=== PATIENT | female | born 1940 | race Caucasian/White ===

== ENCOUNTER 2021-08-25 14:22 | Inpatient (IN) | payer MEDICAID, MEDICARE ==
[~2021-08-25] VITALS: Ht 162.6 cm; Wt 72.6 kg
--- NOTE | 2021-08-25 14:29 | NUR ---
placed pt. on monitoring and evaluation advisor hr of 96, rr 18 sbp 148/80. pt. complaint with nursing interventions.
[2021-08-25] MEDS ORDERED: IV NORMAL SALINE 500 ML BAG IV ONE (15:00)
--- NOTE | 2021-08-25 15:21 | NUR ---
at bedside to examine pt.
[2021-08-25 15:27] LABS: HEMATOCRIT 42.6 % (31.2-41.9); MEAN CORPUSCULAR HEMOGLOBIN 29.5 uug (24.7-32.8); MEAN CORPUSCULAR VOLUME 88.7 fL (75.5-95.3); PLATELET COUNT (AUTO) 326 K/uL (179-408)
[2021-08-25 15:48] LABS: ALANINE AMINOTRANSFERASE 31 U/L (14-59); ALKALINE PHOSPHATASE 120 U/L (50-136); ASPARTATE AMINOTRANSFERASE 19 U/L (15-37); BILIRUBIN,DIRECT 0.1 mg/dL (0.0-0.2); BILIRUBIN,TOTAL 0.4 mg/dL (0.2-1.0); CARBON DIOXIDE 27 mmol/L (21-32); CHLORIDE 105 mmol/L (98-107); GLUCOSE 113 mg/dL (74-106); POTASSIUM 3.8 mmol/L (3.5-5.1); TOTAL PROTEIN, SERUM 7.2 g/dL (6.4-8.2); UREA NITROGEN, BLOOD 14 mg/dL (7-18)
[2021-08-25] MEDS ORDERED: CYAN-51 PO (15:55)
[2021-08-25] MEDS ORDERED: BUDE10.22 INH (15:55)
[2021-08-25] MEDS ORDERED: ACET-73 PO (15:55)
[2021-08-25] MEDS ORDERED: LORA10TA7 PO (15:55)
[2021-08-25] MEDS ORDERED: ESCI5TAB PO (15:55)
[2021-08-25] MEDS ORDERED: OMEP20TA5 PO (15:55)
[2021-08-25] MEDS ORDERED: DOCU100C36 PO (15:55)
[2021-08-25] MEDS ORDERED: TRIA15CR2 TP (15:55)
[2021-08-25] MEDS ORDERED: TRAZ-182 PO (15:55)
[2021-08-25] MEDS ORDERED: FURO40TA5 PO (15:55)
[2021-08-25] MEDS ORDERED: [UNRECOGNIZED DRUG - CODE] PO (15:55)
[2021-08-25] MEDS ORDERED: CALC215T4 PO (15:55)
[2021-08-25] MEDS ORDERED: DONE5TAB34 PO (15:55)
[2021-08-25] MEDS ORDERED: IPRA4AER IH (15:55)
[2021-08-25] MEDS ORDERED: ERGO500040 PO (15:55)
[2021-08-25] MEDS ORDERED: OLAN5TAB70 PO (15:55)
[2021-08-25] MEDS ORDERED: ASPI-869 PO (15:55)
[2021-08-25] MEDS ORDERED: QUET25TA PO (15:55)
[2021-08-25] MEDS ORDERED: GABA-532 PO (15:55)
[2021-08-25] MEDS ORDERED: PERM60CR4 TP (15:55)
[2021-08-25] MEDS ORDERED: DICLOFENAC 1% GEL TP (15:55)
[2021-08-25] MEDS ORDERED: POTA10CA43 PO (15:55)
[2021-08-25] MEDS ORDERED: PIPERACILLIN SODIUM/TAZOBACTAM 3.375 G in IV DEXTROSE 5% 50 ML IV ONE (16:15)
[2021-08-25] MEDS ORDERED: PIPERACILLIN/TAZOBACTAM/D5W 50 ML IV ONE (16:18)
[2021-08-25] MEDS ORDERED: LORAZEPAM 2 MG/1 ML VIAL IV ONE (16:45)
[2021-08-25] MEDS ORDERED: LORAZEPAM 2 MG/1 ML VIAL ONE (16:48)
--- NOTE | 2021-08-25 16:58 | NUR ---
Call 3rd floor to give report at this time I was informed pt. will be admitted past 1700. and nurse will call E.R. when ready.
--- NOTE | 2021-08-25 17:17 | NUR ---
PCR specimen collected and delivered to lab.
--- NOTE | 2021-08-25 18:10 | NUR ---
Telephone report given to Dat Lundberg all systems cover. Awaiting call back as stated "r/o covid bed needs to be assigned".
--- NOTE | 2021-08-25 18:11 | NUR ---
pt slightly restless HR of 111, sbp 111/96. 96 on RA.
--- NOTE | 2021-08-25 18:14 | NUR ---
At this time I was informed by receiving nurse that admission got delayed due to reassignment in bed. And they'll call us when bed will be available. New room 324 awaiting to be cleaned.
--- NOTE | 2021-08-25 19:08 | NUR ---
patient taken up to room 322 AAOx4. vital of 138/93, hr 102 saturatio of 93% ON ra. PT. situated in bed and placed on telemetry monitoring.
--- NOTE | 2021-08-25 19:30 | NUR ---
Patient admitted to telemetry, NSR. AAO x2. Noted with some confusion/ forgetfulness. Able to remember where she came from not why. She sates she does not want to return to [facility] because thats why she got scabies. Noted with redness to back and chest from itching and scratching. Right AC 20 gauge IV, patent and intact. Skin is intact. No SOB, on RA. Patient is NPO. Safety measures initiated, call light within reach.
[2021-08-25] MEDS ORDERED: QUETIAPINE FUMARATE 25 MG TABLET PO PRN ×2 (20:00→20:15)
[2021-08-25] MEDS ORDERED: ACETAMINOPHEN ES 500 MG TABLET PO PRN (20:00)
[2021-08-25] MEDS ORDERED: MORPHINE SULFATE 2 MG/1 ML DISP.SYRIN IV PRN (20:00)
[2021-08-25] MEDS ORDERED: ACETAMINOPHEN ES 500 MG TABLET- SA PATIENTS-PAIN ONLY PO PRN (20:00)
[2021-08-25] MEDS ORDERED: PERMETHRIN 5% CREAM 60 GM TUBE TP ONE (21:00)
[2021-08-25] MEDS ORDERED: TRAZODONE 50 MG TABLET PO SCH (21:00)
--- NOTE | 2021-08-25 21:00 | NUR ---
Dr. Howell made aware report of patient having scabies in her facility and noted with itching and scratching to chest and back. New orders for PRN Benadryl and Permethrin cream noted and carried out. Joselin RODRIGUES d/t allergy.
[2021-08-25] MEDS: DONEPEZIL 5 MG TABLET PO SCH (21:17)
[2021-08-25] MEDS: diphenhydrAMINE 50 MG/1 ML VIAL IV PRN (21:17)
[2021-08-25] MEDS: PIPERACILLIN SODIUM/TAZOBACTAM 3.375 G in IV DEXTROSE 5% 100 ML IV SCH (21:18)
[2021-08-25] MEDS ORDERED: PIPERACILLIN SODIUM/TAZOBACTAM 3.375 G in IV DEXTROSE 5% 50 ML IV SCH (22:00)
[2021-08-26 04:50] VITALS: BP 142/66
[2021-08-26] MEDS: PIPERACILLIN SODIUM/TAZOBACTAM 3.375 G in IV DEXTROSE 5% 100 ML IV SCH ×3 (05:22→21:58)
[2021-08-26] MEDS: diphenhydrAMINE 50 MG/1 ML VIAL IV PRN ×3 (05:22→17:36)
--- NOTE | 2021-08-26 06:03 | NUR ---
Patient still continued with itching to back and chest. Benadryl 50mg IV provided as ordered with help. Remains NSR at 83BPM. on RA, no SOB, moist non productive cough still noted. Safety measures in place. Is continent and incontinent of bladder. Call light within reach.
--- NOTE | 2021-08-26 06:08 | NUR ---
Cameras on unit not functioning, unable to take picture of back and chest. Will endorse to day shift.
[2021-08-26] MEDS: PANTOPRAZOLE SODIUM 40 MG TABLET.DR PO SCH (06:24)
[2021-08-26 07:13] LABS: HEMATOCRIT 40.3 % (31.2-41.9); MEAN CORPUSCULAR HEMOGLOBIN 30.3 uug (24.7-32.8); MEAN CORPUSCULAR VOLUME 87.9 fL (75.5-95.3); PLATELET COUNT (AUTO) 296 K/uL (179-408)
[2021-08-26 07:50] LABS: BILIRUBIN,TOTAL 0.4 mg/dL (0.2-1.0); CREATININE 1.2 mg/dL (0.6-1.3); MAGNESIUM 2.3 mg/dL (1.8-2.4); PHOSPHOROUS 3.2 mg/dL (2.5-4.9); POTASSIUM 3.8 mmol/L (3.5-5.1); TOTAL PROTEIN, SERUM 7.4 g/dL (6.4-8.2)
[2021-08-26] MEDS ORDERED: Medication Not On Formulary EA (Escitalopram Oxalate (Lexapro) 5 MG) PO SCH (09:00)
[2021-08-26] MEDS ORDERED: OLANZAPINE 5 MG TABLET PO SCH (09:00)
[2021-08-26] MEDS ORDERED: ESCITALOPRAM OXALATE 10 MG TABLET PO SCH (09:00)
[2021-08-26] MEDS: ASPIRIN EC 325 MG TABLET.DR PO SCH (09:28)
[2021-08-26] MEDS: DOCUSATE SODIUM 100 MG CAPSULE PO SCH ×2 (09:28→17:36)
[2021-08-26] MEDS: GABAPENTIN 100 MG CAPSULE PO SCH ×3 (09:28→17:36)
[2021-08-26] MEDS: CYANOCOBALAMIN 1,000 MCG TABLET PO SCH (09:29)
[2021-08-26] MEDS: LORATADINE 10 MG TABLET PO SCH (09:29)
[2021-08-26 10:57] VITALS: BP 134/63
--- NOTE | 2021-08-26 16:02 | NUR ---
Clinical SW Note and Discharge Update: SW was able to conduct an assessment with the pt. Pt is alert and oriented x1(name). Pt did not recall the reason for her hospitalization. Pt stated, I wasn't feeling well and then I was brought here. Pt stated, "I don't know." when SW asked pt if she knows where she is. Pt stated she does not want to return to [facility] where pt has resided since 11/30/20 due to not liking the care she received there and she will not return. Per Jamia in admissions at [place], pt is accepted to [facility] ([phone]) upon discharge. Pt stated her ex- past away and her daughter overdosed a long time ago. Pt stated she only has one son who pt did not recall the last communication. Pt stated she also has a mobile home prior to living at [facility]. Pt stated she would like to live with her son if possible. SW was not able to attain contact information of the son or any other family contact information. Jamia stated pt has a conservator from the public guardian named, Cat Sullivan. Pt denied substance use. Pt denied suicidal and homicidal ideations.
[2021-08-26 16:31] VITALS: BP 137/68
--- NOTE | 2021-08-26 19:00 | NUR ---
Patient is awake, alert, denies pain at this time. No signs of acute distress noted. IV site intact and patent. No infiltration, bleeding or erythema noted. Call light within reach. Bed at lowest position, brakes on, siderails x 2. Will continue to monitor.
--- NOTE | 2021-08-26 19:45 | NUR ---
Patient complained of itchiness at her back. Scratched her back. She wanted to get another medication for her back. Called [facility] exchange and spoke with Betito Beck NP. Per Kiran to give hydroxyzine 25mg PO Q8 HS PRN. Noted and carried out.
--- NOTE | 2021-08-26 20:00 | NUR ---
Wound photos taken and placed to chart.
[2021-08-26 20:24] VITALS: BP 143/69
[2021-08-26] MEDS: hydrOXYzine HCL 25 MG TABLET PO PRN (20:32)
[2021-08-26] MEDS: OLANZAPINE 5 MG TABLET PO SCH (20:32)
[2021-08-26] MEDS: ATORVASTATIN 10 MG TABLET PO SCH (20:32)
[2021-08-26] MEDS: DONEPEZIL 5 MG TABLET PO SCH (20:32)
--- NOTE | 2021-08-27 02:00 | NUR ---
Resting comfortably. No significant change of condition noted. Will continue to monitor.
[2021-08-27 04:00] VITALS: BP 119/54
[2021-08-27] MEDS: PIPERACILLIN SODIUM/TAZOBACTAM 3.375 G in IV DEXTROSE 5% 100 ML IV SCH ×3 (05:07→21:58)
[2021-08-27] MEDS: PANTOPRAZOLE SODIUM 40 MG TABLET.DR PO SCH (06:14)
[2021-08-27 07:04] LABS: HEMATOCRIT 41.1 % (31.2-41.9); MEAN CORPUSCULAR HEMOGLOBIN 30.4 uug (24.7-32.8); MEAN CORPUSCULAR VOLUME 88.4 fL (75.5-95.3); PLATELET COUNT (AUTO) 291 K/uL (179-408)
[2021-08-27 07:16] LABS: CREATININE 1.1 mg/dL (0.6-1.3); MAGNESIUM 2.3 mg/dL (1.8-2.4); PHOSPHOROUS 3.7 mg/dL (2.5-4.9); POTASSIUM 3.9 mmol/L (3.5-5.1)
--- NOTE | 2021-08-27 08:00 | NUR ---
AWAKE ALERT AND VERBALLY RESPONSIVE BUT NOTE WITH ON AND OFF CONFUSION TO TIME AND PLACE, CLOSELYT MONITORED
[2021-08-27] MEDS: CYANOCOBALAMIN 1,000 MCG TABLET PO SCH (09:19)
[2021-08-27] MEDS: ASPIRIN EC 325 MG TABLET.DR PO SCH (09:20)
[2021-08-27] MEDS: GABAPENTIN 100 MG CAPSULE PO SCH ×3 (09:20→17:08)
[2021-08-27] MEDS: OLANZAPINE 5 MG TABLET PO SCH ×2 (09:21→20:02)
[2021-08-27] MEDS: DOCUSATE SODIUM 100 MG CAPSULE PO SCH ×2 (09:21→17:08)
[2021-08-27] MEDS: LORATADINE 10 MG TABLET PO SCH (09:21)
[2021-08-27 12:00] VITALS: BP 121/62
--- NOTE | 2021-08-27 12:00 | NUR ---
NOTED PCR RESULTS TAKEN ON 08/25/21 NEGATIVE. PATIENT NOTED ON AND OFF PRODUCTIVE COUGH BUT UNABLE TO COUGH OUT. CONTINUE IV ANTIBIOTIC ORDERED
--- NOTE | 2021-08-27 13:00 | NUR ---
PATIENT PULLED IV X2, REORIENTATION DONE
[2021-08-27 16:50] VITALS: BP 138/66
--- NOTE | 2021-08-27 17:41 | NUR ---
C/O CHILLY SENSATION TEMP CHECK 97 AXILLARY. WARM BLANKET OFFERED. NO ACTIVE ITCHING, NO SEVERE RASHES NOTED
[2021-08-27] MEDS: ATORVASTATIN 10 MG TABLET PO SCH (20:02)
[2021-08-27] MEDS: DONEPEZIL 5 MG TABLET PO SCH (20:02)
[2021-08-28 04:26] VITALS: BP 104/43
--- NOTE | 2021-08-28 06:03 | NUR ---
Slept throughout the night. No distress noted. Denies pain or SOB. IV site intact. Safety and comfort maintained, will endorse to day shift.
[2021-08-28] MEDS: PANTOPRAZOLE SODIUM 40 MG TABLET.DR PO SCH (06:21)
[2021-08-28] MEDS: PIPERACILLIN SODIUM/TAZOBACTAM 3.375 G in IV DEXTROSE 5% 100 ML IV SCH ×3 (06:21→21:15)
[2021-08-28] MEDS: diphenhydrAMINE 50 MG/1 ML VIAL IV PRN ×3 (06:43→21:39)
--- NOTE | 2021-08-28 07:51 | NUR ---
received patient in bed awake alert with periods of confusion and forgetfulness, reorientation done. denies pain or sob except for severe itching on the back. noted thick amount of skin rashes. will give PRN meds for itching
[2021-08-28] MEDS: hydrOXYzine HCL 25 MG TABLET PO PRN ×2 (08:11→20:55)
[2021-08-28] MEDS: OLANZAPINE 5 MG TABLET PO SCH ×2 (08:11→20:55)
[2021-08-28] MEDS: ASPIRIN EC 325 MG TABLET.DR PO SCH (08:11)
[2021-08-28] MEDS: CYANOCOBALAMIN 1,000 MCG TABLET PO SCH (08:11)
[2021-08-28] MEDS: GABAPENTIN 100 MG CAPSULE PO SCH ×3 (08:11→16:35)
[2021-08-28] MEDS: LORATADINE 10 MG TABLET PO SCH (08:11)
[2021-08-28] MEDS: DOCUSATE SODIUM 100 MG CAPSULE PO SCH ×2 (08:11→16:36)
[2021-08-28 11:38] VITALS: BP 110/49
--- NOTE | 2021-08-28 12:00 | NUR ---
NO ACUTE CHANGE FROM MORNING ASSESSMENT STILL WITH ON AND OF SKIN ITCHINESS. CONTINUE WITH PRN MEDS WITH GOOD RELIEF
--- NOTE | 2021-08-28 15:13 | NUR ---
CONTINUE WITH IV ANTIBIOTIC, NO SS OF PAIN OR DISTRESS SATURATING 97% ON RA. AFEBRILE
[2021-08-28 16:12] VITALS: BP 109/62
[2021-08-28] MEDS ORDERED: PERMETHRIN 5% CREAM 60 GM TUBE TP ONE (18:00)
[2021-08-28 20:24] VITALS: BP 102/40
--- NOTE | 2021-08-28 20:45 | NUR ---
Received report from Gilma, patient awake, alert x4, no shortness of breath, no complaint of pain. Complaint of consistent generalized itchiness, redness noted on both lower extremities, back and front trunk area. Repositioned for comfort.
[2021-08-28] MEDS: ATORVASTATIN 10 MG TABLET PO SCH (20:55)
[2021-08-28] MEDS: DONEPEZIL 5 MG TABLET PO SCH (20:55)
--- NOTE | 2021-08-28 21:39 | NUR ---
patient still complaining of itchiness, benadryl 25mg IV given. Relieved for an hour as stated by patient. Addendum: 08/29/21 at 0224 by TYLER ERICKSON RN RN Benadryl 50mg IV was given instead of 25mg.
[2021-08-29] MEDS: diphenhydrAMINE 50 MG/1 ML VIAL IV PRN ×2 (02:34→08:52)
--- NOTE | 2021-08-29 02:36 | NUR ---
Patient slept for 3 hours after administering Benadryl 50mg IV. Awake at this time, complaint again of severe itchiness on her back, Benadryl 50mg IV given. Assisted to void in the bedpan. Repositioned for comfort.
[2021-08-29 04:24] VITALS: BP 114/60
[2021-08-29] MEDS: hydrOXYzine HCL 25 MG TABLET PO PRN (04:38)
--- NOTE | 2021-08-29 05:26 | NUR ---
Patient still with itchiness, warm towel applied to patient`s back for comfort. No shortness of breath noted. Patient for skin scrape test for scabies, wound care consult done. For continuity of care.
[2021-08-29] MEDS: PIPERACILLIN SODIUM/TAZOBACTAM 3.375 G in IV DEXTROSE 5% 100 ML IV SCH ×2 (05:44→13:28)
[2021-08-29] MEDS: PANTOPRAZOLE SODIUM 40 MG TABLET.DR PO SCH (06:08)
--- NOTE | 2021-08-29 06:30 | NUR ---
Skin scrape for scabies test done and sent to lab.
[2021-08-29 06:56] LABS: HEMATOCRIT 38.2 % (31.2-41.9); MEAN CORPUSCULAR HEMOGLOBIN 30.4 uug (24.7-32.8); MEAN CORPUSCULAR VOLUME 88.4 fL (75.5-95.3); PLATELET COUNT (AUTO) 294 K/uL (179-408)
[2021-08-29 07:17] LABS: CREATININE 1.2 mg/dL (0.6-1.3); MAGNESIUM 2.2 mg/dL (1.8-2.4); POTASSIUM 3.9 mmol/L (3.5-5.1)
--- NOTE | 2021-08-29 07:50 | NUR ---
received awake and being changed by commercial glazier. no sob or distress noted. c/o of back itching and asked for benadryl. redness noted on trunk. iv intact atb currently infusing. safety precautions kept. call light in reach.
[2021-08-29] MEDS: DOCUSATE SODIUM 100 MG CAPSULE PO SCH ×2 (08:49→17:12)
[2021-08-29] MEDS: OLANZAPINE 5 MG TABLET PO SCH (08:51)
[2021-08-29] MEDS: LORATADINE 10 MG TABLET PO SCH (08:51)
[2021-08-29] MEDS: CYANOCOBALAMIN 1,000 MCG TABLET PO SCH (08:51)
[2021-08-29] MEDS: GABAPENTIN 100 MG CAPSULE PO SCH ×3 (08:51→17:12)
[2021-08-29] MEDS ORDERED: ASPIRIN EC 81 MG TABLET.DR PO SCH (09:00)
[2021-08-29] MEDS ORDERED: PERMETHRIN 5% CREAM 60 GM TUBE TP ONE (10:30)
--- NOTE | 2021-08-29 11:30 | NUR ---
pt removed her iv line, multiple attempts made unsuccessful. ordered for midline. trinidad sup aware.
[2021-08-29 11:58] VITALS: BP 143/58
--- NOTE | 2021-08-29 13:00 | NUR ---
able to insert iv line on right hand #22g tolerated. pt reinforced its importance and reminded to call when she needs help. she verbalized understanding.
[2021-08-29 16:24] VITALS: BP 131/60
[2021-08-29] MEDS ORDERED: OLAN5TAB70 PO (17:20)
[2021-08-29] MEDS ORDERED: ASPI-618 PO (17:20)
[2021-08-29] MEDS ORDERED: HYDR-500 PO (17:20)
[2021-08-29] MEDS ORDERED: ATOR10TA PO (17:20)
[2021-08-29] MEDS ORDERED: AMOX-430 PO (17:20)
[2021-08-29] MEDS ORDERED: ACID1TAB4 PO (17:20)
[2021-08-29] MEDS ORDERED: FURO-152 PO (17:20)
--- NOTE | 2021-08-29 18:23 | NUR ---
Pt for discharge back to [facility] in the [place] per maida's preference. Went over discharge instructions with the patient, verbalized understanding. No complaints at this time Addendum: 08/29/21 at 1825 by NORMAN MELGOZA RN Charge nurse called transportation for greens picker 730pm.
--- NOTE | 2021-08-29 19:21 | NUR ---
Called Claribel in the [facility] to give report but no answer, left voicemail. Endorsed to next shift.
--- NOTE | 2021-08-29 20:49 | NUR ---
Spoke to Kellie staff from [place] and gave report.
--- NOTE | 2021-08-29 21:09 | NUR ---
Patient picked up by [facility], gave report, and patient took all belonings, patient alert in fair condition.
== END 2021-08-29 21:10 | DRG 871 ==
LOC: ER 14:22 → TELE3 18:47 → MEDSURG3 08-26 08:50
PROVIDERS: ADMIT Internal Medicine; ATTEND Internal Medicine
PROC: 0HB6XZZ Excision of Back Skin, External Approach (ICD-10-PCS; principal; 2021-08-29)
DX: A41.9 Sepsis, unspecified organism (principal); J69.0 Pneumonitis due to inhalation of food and vomit; G92.8 Other toxic encephalopathy; D68.59 Other primary thrombophilia; F03.91 Unspecified dementia, unspecified severity, with behavioral disturbance; E78.5 Hyperlipidemia, unspecified; G89.29 Other chronic pain; M81.0 Age-related osteoporosis without current pathological fracture; Z20.822 Contact with and (suspected) exposure to COVID-19; Z87.891 Personal history of nicotine dependence; Z90.49 Acquired absence of other specified parts of digestive tract; R73.03 Prediabetes; B86 Scabies; I25.10 Atherosclerotic heart disease of native coronary artery without angina pectoris; M19.90 Unspecified osteoarthritis, unspecified site; Z74.09 Other reduced mobility; R53.1 Weakness; F39 Unspecified mood [affective] disorder; I50.9 Heart failure, unspecified
CPT/HCPCS: 36415; 70450; 71045; 83605; 83735; 84100; 84443; 84484; 85025; 85730; 87040; 93005; 97161; A4663; G0378; J1200; J2060; J2543; J7040; J7060; U0003

== ENCOUNTER 2021-09-23 14:09 | Emergency (ER) | payer MEDICARE ==
[~2021-09-23] VITALS: Ht 162.6 cm; Wt 72.6 kg
[~2021-09-23 14:09] MED LIST: ACET-73 PO; ACID1TAB4 PO; AMOX-430 PO; ASPI-618 PO; ATOR10TA PO; BUDE10.22 INH; CALC215T4 PO; CYAN-51 PO; DOCU100C36 PO; DONE5TAB34 PO; ERGO500040 PO; ESCI5TAB PO; FURO-152 PO; GABA-532 PO; HYDR-500 PO; IPRA4AER IH; LORA10TA7 PO; OLAN5TAB70 PO; OMEP20TA5 PO; PERM60CR4 TP; POTA10CA43 PO; QUET25TA PO; TRIA15CR2 TP; [UNRECOGNIZED DRUG - CODE] PO
--- NOTE | 2021-09-23 14:17 | NUR ---
PT IS IN ROOM #2B. DR WELLS EVALUATED THE PT.
[2021-09-23] MEDS ORDERED: ALBUTEROL SULFATE 2.5 MG/3 ML NEBU ONE (14:53)
[2021-09-23] MEDS ORDERED: BENZONATATE 100 MG CAPSULE ONE (14:55)
[2021-09-23 14:56] LABS: *BILIRUBIN,URIN NEGATIVE (NEGATIVE); *CLARITY,URINE CLEAR (CLEAR); *COLOR,URINE YELLOW (YELLOW); *KETONES,URINE NEGATIVE (NEGATIVE); *UROBILINOGEN,URINE 0.2 E.U./dl (NORMAL); LEUKOCYTE ESTERASE ,URINE TRACE (NEGATIVE); NITRITE, URINE NEGATIVE (NEGATIVE); PH,URINE 6.5 (5.0-8.0); UGLUCOSE NEGATIVE (NEGATIVE)
[2021-09-23] MEDS ORDERED: ALBUTEROL SULFATE 2.5 MG/3 ML NEBU NEB ONE (15:00)
[2021-09-23] MEDS ORDERED: BENZONATATE 100 MG CAPSULE PO ONE (15:00)
[2021-09-23 15:10] LABS: *BLOOD, URINE TRACE (NEGATIVE)
[2021-09-23 15:11] LABS: BACTERIA,URINE NONE SEEN /HPF (NONE SEEN); SQUAMOUS EPITHELIAL CELL,UR FEW /HPF (NONE SEEN)
[2021-09-23] MEDS ORDERED: AMOX-430 PO ×2 (16:28→16:30)
[2021-09-23] MEDS ORDERED: ACETAMINOPHEN ES 500 MG TABLET ONE (16:48)
[2021-09-23] MEDS ORDERED: ACETAMINOPHEN ES 500 MG TABLET PO ONE (17:00)
[2021-09-23] MEDS ORDERED: AMOXICILLIN-CLAVUL 875-125MG TABLET PO ONE (17:45)
[2021-09-23] MEDS ORDERED: AMOXICILLIN-CLAVUL 875-125MG TABLET ONE (17:46)
--- NOTE | 2021-09-23 17:51 | NUR ---
PT WAS D/C'd TO HOME. D/C INSTRUCTIONS GIVEN TO THE PT AND TO AMBULANCE EMT.
[2021-09-23 17:52] VITALS: BP 149/88
== END 2021-09-23 18:21 ==
LOC: ER 14:09
DX: M84.48XA Pathological fracture, other site, initial encounter for fracture (principal); J40 Bronchitis, not specified as acute or chronic; Z20.822 Contact with and (suspected) exposure to COVID-19; F03.90 Unspecified dementia, unspecified severity, without behavioral disturbance, psychotic disturbance, mood disturbance, and anxiety; I50.9 Heart failure, unspecified; Z79.899 Other long term (current) drug therapy
CPT/HCPCS: 71045; 72131; 87086; A4663; A9150